=== PATIENT | female | born 1965 | race Caucasian/White ===

== ENCOUNTER → 2016-05-19 | Outpatient (CLI) | payer OTHER ==
[~2016-05-19] MED LIST: CARI350T PO; DIPH25CA58 PO; MELA3TAB PO; NAPR375T3 PO; OXYC-250 PO; ZOLP5TAB PO
--- NOTE | 2016-05-19 22:58 | PAIN ---
DATE OF SERVICE: 05/19/2016 DIAGNOSES: Lumbar radiculopathy with lumbar degenerative disk disease and post-lumbar laminectomy syndrome. HISTORY OF PRESENT ILLNESS: The patient is a 50-year-old female who returns for followup status post caudal approach epidural steroid injection x 1. The patient reports she did very well about 50% improved after the first injection, more like 75% improved after the first week, the second week about 50% improved, but the pain is beginning to return slowly in the low back and left lower extremity. The patient reports that she had one episode last week where the pain was significantly exacerbated in the left leg to the point where she consider going to the Emergency Room, but did not and after about a day, the pain began to resolve a little bit, but still about an 8 on a scale of 10. The patient reports constant, sharp, and radiating low back and left leg, left posterior gluteus, thigh, anterior thigh as well as into the knee on the left side and it feels heavy and easily fatigable when she is walking. The patient reports no new motor or sensory deficits, no new bowel or bladder incontinence or other complaints. PHYSICAL EXAMINATION: VITAL SIGNS: Today, the patient's blood pressure is 145/92, pulse 88, respirations 20, temperature 98.4 degrees Fahrenheit, weight is 223 pounds. GENERAL: The patient is awake, alert, oriented, appropriate, very pleasant demeanor. HEENT: Shows normocephalic, atraumatic. Extraocular movements are intact and symmetrical. Oral cavity shows mucous membranes are moist and pink. Dentition is intact. NECK: Shows anterior throat supple without palpable lymphadenopathy noted. Swallow reflex is symmetrical. Neck shows full rotation and motion of cervical spine. CHEST: Shows normal on inspection. Breath sounds clear to auscultation bilaterally. HEART: Shows S1 and S2 clear. ABDOMEN: Soft, nontender, nondistended. No palpable organomegaly is noted. No rebound or guarding demonstrated. BACK: Shows spine grossly midline. Lumbar lordotic curvature is slightly flattened. There is a well-healed surgical scar noted in the lumbar distribution. Lumbar paraspinous muscle shows some yynq-ln-jcdgduan tenderness, more on the left than the right in the lumbar paraspinous musculature inferiorly only, but ____ diffusely without radiation, without significant trigger points or atrophy or hypertrophy. No tenderness over the spinous processes. No tenderness over the sacrum or sacroiliac regions. The patient shows good rotation and motion of lumbar spine both laterally as well as extension and flexion without difficulty. EXTREMITIES: Lower extremities showed deep tendon reflexes 2+ in the patellar tendons, 1+ tendo calcaneus tendons. Motor exam is approximately 4 on a scale of 5 with dorsiflexion and extension on the left and 5/5 on the right. PLAN: Options were discussed with the patient. The patient's old chart was reviewed as was her current medication regimen and updated. Current review of systems is updated today as well. We will wait for preauthorization for a second caudal approach epidural steroid injection with her workers' compensation insurance and she would like to wait for preauthorization prior to proceeding with this and we will plan on proceeding once this authorization is approved. The patient was given Medrol Dosepak with instructions, side effects to be aware of in the meantime and we will have her return to the clinic in approximately 1-2 weeks for a second caudal epidural steroid injection. HERACLIO NARANJO MD DR: JEANNIE/renetta JOB#: [id number] / [id number]
== END | disposition home or self-care (01) ==
LOC: PNCL 11:07
PROVIDERS: ATTEND Anesthesiology
DX: M51.16 Intervertebral disc disorders with radiculopathy, lumbar region (principal); M96.1 Postlaminectomy syndrome, not elsewhere classified
CPT/HCPCS: 99212

== ENCOUNTER → 2016-05-26 | Outpatient (CLI) | payer OTHER ==
[~2016-05-26] MED LIST changes: +IOHEXOL 180 MG/ML 10 ML VIAL. ONE; +methylPREDNISolone ACETATE 40 MG/ML VIAL. ONE; +methylPREDNISolone ACETATE 80 MG/ML VIAL. ONE
--- NOTE | 2016-05-26 23:55 | PAIN ---
DATE OF SERVICE: 05/26/2016 DIAGNOSES: Lumbar radiculopathy with lumbar degenerative disk disease and post-lumbar laminectomy syndrome. HISTORY OF PRESENT ILLNESS: The patient is a 50-year-old female who returns for followup status post caudal epidural steroid injection x 1 with about 80% improvement for the first week or so, now is about 50% improvement overall. The patient still complains of pain in the low back, left lower extremity, improved in the lower leg, but still significant tenderness and pain in the thigh, which has a heavy sensation as well as numbness and tingling and some aching and pain as well with activity, but it is much better than it was. The patient reports her pain as a 5 on a scale of 10 now, describes it as heavy and aching, dull, also some shooting pain in the left leg as it was previously. The patient reports she did try Medrol Dosepak, which we prescribed last time, this helped by about 25% or so. The patient reports no new motor or sensory deficits, no new bowel or bladder incontinence or other complaints. PHYSICAL EXAMINATION: VITAL SIGNS: Today, the patient's blood pressure is 149/97, pulse 84, respirations 18, temperature is 98.3 degrees Fahrenheit, height is 5 feet 7 inches, weight is 217 pounds. GENERAL: The patient is awake, alert, oriented, appropriate, very pleasant demeanor. HEENT: Shows normocephalic, atraumatic. Extraocular movements are intact, symmetrical. Oral cavity shows mucous membranes moist and pink. Dentition is intact. NECK: Shows anterior throat supple without palpable lymphadenopathy noted. Swallow reflex is symmetrical. Neck shows full rotational motion of the cervical spine without difficulty. CHEST: Shows normal on inspection. Breath sounds are clear to auscultation bilaterally. HEART: Shows S1 and S2 clear. ABDOMEN: Soft, nontender, nondistended. BACK: Shows spine grossly midline. Lumbar paraspinous musculature shows some moderate tenderness with palpation, but only in the low lumbar distribution and only diffusely. Well-healed surgical scar is again noted. No tenderness over the sacrum and sacroiliac regions. The patient has good rotational motion of the lumbar spine without difficulty laterally as well as extension and flexion. EXTREMITIES: Lower extremities show deep tendon reflexes 2+ in the patellar tendons. Motor exam is strong with approximately 4 on a scale 5 with left dorsiflexion and extension and 5/5 on the right. Options were discussed with the patient. The patient's old chart was reviewed as her current medication regimen updated. Current review of systems updated today as well and we will proceed with a second caudal approach epidural steroid injection today with fluoroscopic guidance. Risks were again discussed including, but not limited to bleeding, infection, possibility of epidural hematoma, subsequent neurologic compromise, dural puncture, headaches, spinal cord and/or nerve damage, side effects of steroid medication and poor results regarding pain control. The patient understands and wishes to proceed. The patient will return to clinic in approximately 2 weeks for followup, was counseled on return appointment, activity level and side effects to be aware of. DIAGNOSIS: Lumbar radiculopathy with lumbar degenerative disk disease and post-lumbar laminectomy syndrome. PROCEDURE: Caudal approach epidural steroid injection with fluoroscopic guidance under sterile prep and drape using local anesthetic. Medications injected 120 mg Depo-Medrol plus 10 mL with preservative-free normal saline and 2 mL of Isovue for contrast. Condition at discharge is stable. The patient tolerated procedure well, had no complications. HERACLIO NARANJO MD DR: JEANNIE/renetta JOB#: [id number] / [id number]
== END | disposition home or self-care (01) ==
LOC: PNCL 14:42
PROVIDERS: ATTEND Anesthesiology
DX: M51.16 Intervertebral disc disorders with radiculopathy, lumbar region (principal); M96.1 Postlaminectomy syndrome, not elsewhere classified
CPT/HCPCS: 62323; J1030; J1040

== ENCOUNTER → 2016-06-24 | Outpatient (CLI) | payer OTHER ==
--- NOTE | 2016-06-24 23:44 | PAIN ---
DATE OF SERVICE: 06/24/2016 PROGRESS NOTE DIAGNOSES: Lumbar radiculopathy with lumbar degenerative disk disease and post-lumbar laminectomy syndrome. HISTORY OF PRESENT ILLNESS: The patient is a 51-year-old female who returns for followup status post caudal approach epidural steroid injections x 2. The patient reports about 50% overall improvement, but still significant pain that is constant and intense in the low back and into the left leg. The patient reports she is feeling somewhat nauseous today, but feels that this is just from the increase in pain that she has been having. The patient reports cold sensation and tingling in the left foot for about 2-3 days as well as pain across the low back, into the left thigh, in the medial and lateral aspect of the thigh and lateral aspect of the lower leg. The patient reports no loss of motor function, but significant fatigability and ease of fatigue with the left leg with walking, even more than about 10-20 feet. The patient reports her pain as a 7 on a scale 10 today, constant and intense. PHYSICAL EXAMINATION: VITAL SIGNS: The patient's blood pressure 143/93, pulse 116, respirations 18, temperature 98.0 degrees Fahrenheit. Height is 5 feet 7 inches and weighs 219 pounds. GENERAL: The patient is awake, alert, oriented, appropriate, very pleasant demeanor. HEENT: Shows normocephalic and atraumatic. Extraocular movements are intact and symmetrical. Oral cavity shows mucous membranes are moist and pink. Dentition is intact. NECK: Shows anterior throat supple without palpable lymphadenopathy noted. CHEST: Shows normal on inspection. Breath sounds are clear to auscultation bilaterally. HEART: Shows S1, S2 clear. BACK: Shows spine grossly in midline. Well-healed surgical scar is noted in the lumbar distribution. Lumbar paraspinous muscle shows some [id number]-br-[id number] tenderness with palpation only diffusely without radiation demonstrated. The patient shows good rotation and motion of the lumbar spine, both laterally as well as extension and flexion. EXTREMITIES: Lower extremities show deep tendon reflexes at 2+ in the patellar, 1+ talocalcaneal tendons. Motor exam is approximately 4 on a scale of 5 with left lower extremity and 5/5 on the right. PLAN: Options were discussed with the patient. The patient's old chart was reviewed as her current medication regimen and updated. Current review of systems updated today as well. We will proceed with a third caudal approach epidural steroid injection today with fluoroscopic guidance. Risks were again discussed including, but not limited to bleeding, infection, possibility of epidural hematoma, subsequent neurologic compromise, dural puncture, headaches, spinal cord and/or nerve damage, side effects of steroid medication and poor results regarding pain control. The patient understands and wished to proceed. The patient will receive a third injection in a series of 3, but further injections approximately 6 months from her first injection if necessary. The patient will follow up with her Workers' Comp and to see if any other treatments are scheduled or may be scheduled in the future. The patient will continue with physical therapy, continue doing stretching and strengthening exercises at home and exercise as tolerated and follow up as needed at this time. DIAGNOSES: Lumbar radiculopathy with lumbar degenerative disk disease and lumbar post-laminectomy syndrome. PROCEDURE: Lumbar caudal approach epidural steroid injection with fluoroscopic guidance under sterile prep and drape using local anesthesia. MEDICATION INJECTED: 120 mg of Depo-Medrol plus 10 mL of preservative-free normal saline and 2 mL of Isovue for contrast. CONDITION AT DISCHARGE: Stable. The patient tolerated the procedure well and had no complications. HERACLIO ANRANJO MD DR: JEANNIE/renetta JOB#: [id number] / [id number]
== END | disposition home or self-care (01) ==
LOC: PNCL 10:07
PROVIDERS: ATTEND Anesthesiology
DX: M51.16 Intervertebral disc disorders with radiculopathy, lumbar region (principal); M96.1 Postlaminectomy syndrome, not elsewhere classified
CPT/HCPCS: 62323; J1030; J1040

== ENCOUNTER → 2017-11-06 | Outpatient (CLI) | payer BC | END | disposition home or self-care (01) | LOC: US 14:06 | DX: M79.604 Pain in right leg (principal); M79.89 Other specified soft tissue disorders | CPT/HCPCS: 93971 ==